=== PATIENT | female | born 1995 | race African-American/Black ===

== ENCOUNTER 2021-06-07 05:22 | Emergency (ER) | payer OTHER ==
[~2021-06-07] VITALS: Ht 160 cm; Wt 97.5 kg
[2021-06-07 05:24] VITALS: BP 121/77
[2021-06-07] MEDS ORDERED: THERAFLU FLU &1 EAC1 (05:30)
[2021-06-07] MEDS ORDERED: AZITHROMYCIN 2250 MG PO (06:14)
== END 2021-06-07 06:22 | disposition home or self-care (01) ==
LOC: ER 05:22
PROVIDERS: Emergency Medicine
DX: J02.9 Acute pharyngitis, unspecified (principal); Z20.822 Contact with and (suspected) exposure to COVID-19; Z79.899 Other long term (current) drug therapy